=== PATIENT | male | born 1995 | race Caucasian/White ===

== ENCOUNTER 2019-03-06 17:19 | Emergency (ER) | payer MEDICAID ==
[~2019-03-06] VITALS: Ht 172.7 cm; Wt 73.5 kg
[2019-03-06 17:42] VITALS: BP_SYST 150
--- NOTE | 2019-03-06 17:47 | NUR ---
Patient to ER bed 2 to gown for evaluation. Side rails up.
--- NOTE | 2019-03-06 17:50 | NUR ---
THI Frias at bedside examining patient.
--- NOTE | 2019-03-06 17:55 | NUR ---
Pt presents to ED c/o R hand pain s/p boxing.Pt has no acute distress noted.
[2019-03-06 18:50] VITALS: BP_SYST 150
--- NOTE | 2019-03-06 18:50 | NUR ---
Boxer splint applied to RFA. + pulse noted. Capillary refill <3 seconds. Patient has ability to move non-splinted digits. Has sensation present to affected site. Skin color within normal limits. Applied for pain management control.
--- NOTE | 2019-03-06 18:55 | NUR ---
Patient given written and verbal discharge instructions and verbalizes understanding. ER MD discussed with patient the results and treatment provided. Patient in stable condition. ID arm band removed. Rx of motrin given. Patient educated on pain management and to follow up with PMD. Pain Scale 3. Opportunity for questions provided and answered. Medication side effect fact sheet provided.
[2019-03-06] MEDS ORDERED: IBUPROFEN 600 MG TABLET PO ONE (19:00)
== END 2019-03-06 18:50 | disposition home or self-care (01) ==
LOC: SED 17:19
DX: S62.316A Displaced fracture of base of fifth metacarpal bone, right hand, initial encounter for closed fracture (principal); W50.0XXA Accidental hit or strike by another person, initial encounter; Y93.71 Activity, boxing; Y92.89 Other specified places as the place of occurrence of the external cause; Y99.8 Other external cause status
CPT/HCPCS: 99283

== ENCOUNTER 2023-12-26 19:57 | Emergency (ER) | payer MEDICAID ==
[~2023-12-26] VITALS: Ht 167.6 cm; Wt 72.6 kg
[2023-12-26 20:10] VITALS: BP_SYST 159; PULSE 90; RESP 22; TEMP 99.3; O2SAT 99
[2023-12-26] MEDS: BUPRENORPHINE HCL/NALOXONE HCL 2-0.5 MG 1 EACH TAB.SUBL SL ONE ×2 (21:29→23:35)
[2023-12-26] MEDS: ONDANSETRON 4 MG ODT TAB PO ONE (21:46)
[2023-12-26] MEDS: KETOROLAC TROMETHAMINE 60 MG/2 ML VIAL IM ONE (23:36)
[2023-12-26 23:46] VITALS: RESP 14; TEMP 98.2
[2023-12-27] MEDS ORDERED: ONDA8TAB60 PO (00:40)
[2023-12-27] MEDS ORDERED: IBUP-1971 PO (00:40)
[2023-12-27] MEDS ORDERED: BUPR1FIL3 SL (00:40)
[2023-12-27 01:35] VITALS: BP_SYST 151; PULSE 88; O2SAT 99
== END 2023-12-27 01:20 | disposition home or self-care (01) ==
LOC: SED 19:57
DX: F11.23 Opioid dependence with withdrawal (principal); M79.10 Myalgia, unspecified site; R11.2 Nausea with vomiting, unspecified; F17.210 Nicotine dependence, cigarettes, uncomplicated; R03.0 Elevated blood-pressure reading, without diagnosis of hypertension; Z79.899 Other long term (current) drug therapy
CPT/HCPCS: 99284; 96372; Q0162; J1885